=== PATIENT | male | born 1960 | race Caucasian/White ===

== ENCOUNTER 2016-12-08 11:35 | Emergency (ER) | payer OTHER ==
[~2016-12-08] VITALS: Ht 180.3 cm; Wt 101.0 kg
[~2016-12-08 11:35] MED LIST: CIPR500T4 PO; METR500T PO; ULT50 PO
[2016-12-08 11:52] VITALS: Ht 180.3 cm; Wt 101.0 kg
[2016-12-08] MEDS ORDERED: HYDROCODONE/APAP (5/325) TAB PO ONE (12:30)
[2016-12-08] MEDS ORDERED: IBUPROFEN 600 MG TAB PO ONE (12:30)
[2016-12-08] MEDS ORDERED: ONDANSETRON 4 MG TAB PO ONE (12:30)
--- NOTE | 2016-12-08 13:05 | RADRPT ---
PROCEDURE: XR Lumbar Spine. CLINICAL INDICATION: Lumbar spine pain. TECHNIQUE: AP, lateral, and cone-down lateral view of the lumbar spine were obtained. COMPARISON: CT abdomen 10/03/2013 FINDINGS: There is stable 3 mm retrolisthesis of L4 on L5 and trace retrolisthesis of L2 on L3 and L3 on L4. There are anterior osteophytes from L2-S1 with moderate narrowing of the intervertebral disc spaces at L4-5 and mild disc-space narrowing at L2-3, L3-4 and L5-S1. There are moderate discogenic endpla te changes at L4-5. There are mild associated discogenic endplate changes at L2-3, L3-4 and L5-S1. There is stable appearance of chronic anterior wedging of the T12 vertebral body. The remaining deidre tebral body heights are maintained. The marrow density is within normal limits. There is moderate facet spondylosis at L4-5 and L5-S1 with suggestion of neural foraminal narrowing at these levels. The remaining neural foramina appear patent. The paraspinal soft tissues unremarkable. There is no evidence of fracture. IMPRESSION: 1. Moderate to severe degenerative disc disease at L4-5. 2. Mild to moderate degenerative disc disease at L2-3, L3-4 and L5-S1. 3. Moderate facet spondylosis at L4-5 and L5-S1 with suggestion of neural foraminal narrowing at th dixie level. RPTAT: HGAS .Jeromy Alvarado MD, Date Time Electronically viewed and signed by .Jeromy Alvarado MD, on 12/08/2016 13:04 .S/
[2016-12-08] MEDS ORDERED: IBUP-1542 PO (13:32)
[2016-12-08] MEDS ORDERED: HYDR-906 PO (13:32)
[2016-12-08] MEDS ORDERED: ONDA4TAB8 PO (13:37)
[2016-12-08 14:26] VITALS: BP 126/75; PULSE 75; RESP 18; TEMP 98.3
--- NOTE | 2016-12-08 17:28 | ERD ---
ER Documentation Chief Complaint Date/Time DATE: 12/08/16 TIME: 17:26 Chief Complaint Complains of lower backpain since yesterday HPI This is a 56-year-old male presents to the ER with lower back pain that started yesterday. Patient was bending down and he picked up something heavy when he felt severe back pain. Pain has been constant since then. Pain does not radiate anywhere. Patient denies any urinary bowel incontinence. He denies any fevers or chills. He denies any lower extremity numbness or tingling. Patient denies any flank pain. He denies any urinary frequency, dysuria, hematuria. Patient still is complaining of nausea vomiting diarrhea that started yesterday. Vomiting is nonbilious nonbloody. Diarrhea is watery with no blood in it. Patient denies any dizziness or weakness. He denies any abdominal pain at this time. Patient denies chest pain or shortness of breath. ROS 12 point review of systems was done, all negative except per HPI. Medications Home Meds Active Scripts Ondansetron Hcl* (Zofran*) 4 Mg Tablet, 4 MG PO Q6H for NAUSEA AND/OR VOMITING, #30 TAB Prov:SUSY BROWN 12/08/16 Ibuprofen* (Motrin*) 600 Mg Tab, 600 MG PO Q6, #30 TAB Prov:SUSY BROWN 12/08/16 Hydrocodone/Acetaminophen ([place] 5-325 Tablet) 1 Each Tablet, 1 TAB PO Q6H Y for PAIN, #20 TAB Prov:SUSY BROWN C 12/08/16 Tramadol HCl (Tramadol HCl) 50 Mg Tablet, 50 MG PO Q4 Y for PAIN, #20 TAB Prov:ANH ROWE. 07/01/16 Metronidazole* (Flagyl*) 500 Mg Tablet, 500 MG PO TID for 7 Days, TAB Prov:ANH ROWE 07/01/16 Ciprofloxacin Hcl* (Ciprofloxacin Hcl*) 500 Mg Tablet, 500 MG PO BID for 7 Days , TAB Prov:ANH ROWE. 07/01/16 Allergies Allergies: Coded Allergies: No Known Drug Allergy (Verified Allergy, Unknown, 07/01/16) PMhx/Soc History of Surgery: Yes (DIVERTICULITIS) Anesthesia Reaction: No Hx Neurological Disorder: No Hx Respiratory Disorders: No Hx Cardiac Disorders: No Hx Psychiatric Problems: No Hx Miscellaneous Medical Probl: No Hx Alcohol Use: No Hx Substance Use: No Hx Tobacco Use: No Physical Exam Vitals Vital Signs Date Time Temp Pulse Resp B/P Pulse Ox O2 Delivery O2 Flow Rate FiO2 12/08/16 14:26 98.3 75 18 126/75 100 Room Air 12/08/16 11:52 98.3 98 20 135/80 98 Physical Exam GENERAL: The patient is well developed and appropriate for usual state of health , in no apparent distress. NECK: C-spine is soft and supple. There is no cervical lymphadenopathy. CHEST: Clear to auscultation bilaterally. There are no rales, wheezes or rhonchi. HEART: Regular rate and rhythm. No murmurs, clicks, rubs or gallops. ABDOMEN: Soft, nontender and nondistended. Good bowel sounds. No rebound or guarding. No gross peritonitis. No gross organomegaly or masses. No Pugh sign or McBurney point tenderness. No pulsatile abdominal mass. BACK: No midline or flank tenderness. Tender to palpation from L3-L5. Tense paraspinal muscles. Negative leg raise test. No step- offs. EXTREMITIES: Equal pulses bilaterally. There is no peripheral clubbing, cyanosis or edema. No focal swelling or erythema. Full range of motion. Grossly neurovascularly intact. NEURO: Alert and oriented. Cranial nerves II through XII are intact. Motor strength in all 4 extremities with 5/5 strength. Sensation grossly intact. Normal speech and gait. SKIN: There is no apparent rash or petechia. The skin is warm and dry. Results 24 hrs Current Medications Medications (Trade) Dose Ordered Sig/Beena Route PRN Reason Start Time Stop Time Status Last Admin Dose Admin Ondansetron HCl (Zofran Tab) 4 mg ONCE ONCE PO 12/08/16 12:30 12/08/16 12:31 DC 12/08/16 13:01 Acetaminophen/ Hydrocodone Bitart ([place] (5/325)) 1 tab ONCE ONCE PO 12/08/16 12:30 12/08/16 12:31 DC 12/08/16 12:30 Ibuprofen (Motrin) 600 mg ONCE ONCE PO 12/08/16 12:30 12/08/16 12:31 DC 12/08/16 12:30 Procedures/MDM Differential Diagnosis includes but is not limited to back strain, vertebral fracture, epidural abscess, cauda equina, herniated disc, AAA rupture, kidney stones, UTI, pyelonephritis. Is likely back strain. Patient does have some degenerative disc disease however there is no fracture or dislocation. Patient is neurovascularly intact. In regards to patient's nausea vomiting and diarrhea this is likely gastroenteritis. I doubt acute abdomen as patient does not have any abdominal pain. Patient is afebrile and well-appearing. His vital signs are stable. He was given Zofran here in the ER and he was able to tolerate p.o. fluids. He felt much better. She will be sent home with [place], ibuprofen, Zofran. He is to follow-up with his primary care doctor within 1-2 days or return to ER sooner if symptoms worsen. My medical decision making was shared with the patient he understands and agrees with plan. Departure Diagnosis: Primary Impression: Back pain Condition: Stable Patient Instructions: Back Pain (Acute Or Chronic), Gastroenteritis, Viral (6Y- Adult) Referrals: FLAQUITO GUILLEN (PCP) Additional Instructions: Call your primary care doctor TOMORROW for an appointment during the next 1-2 days.See the doctor sooner or return here if your condition worsens before your appointment time. SUSY BROWN Dec 08, 2016 17:28
== END 2016-12-08 14:28 | disposition home or self-care (01) ==
LOC: FTE 11:35
DX: M54.5 Low back pain (principal); R11.2 Nausea with vomiting, unspecified
CPT/HCPCS: 72100; Z7502; Z7610

== ENCOUNTER 2017-05-26 18:17 | Emergency (ER) | payer OTHER ==
[~2017-05-26] VITALS: Wt 95.5 kg
[~2017-05-26 18:17] MED LIST changes: +HYDR-906 PO; +IBUP-1542 PO; +ONDA4TAB8 PO; +TRAM50TA2 PO; -ULT50 PO
[2017-05-26] MEDS ORDERED: HYDR-906 PO (20:55)
[2017-05-26] MEDS ORDERED: NAPR-260 PO (20:56)
[2017-05-26] MEDS ORDERED: CYCL-319 PO (20:56)
[2017-05-26] MEDS ORDERED: HYDROCODONE/APAP (5/325) TAB PO ONE (21:00)
--- NOTE | 2017-05-26 22:03 | ERD ---
ER Documentation Chief Complaint Date/Time DATE: 05/26/17 TIME: 21:54 Chief Complaint LOW BACK PAIN, ONSET 2 DAYS, NO INJURY HPI This patient is a 56-year-old male presenting to the emergency department with complaints of low back pain after lifting a heavy object approximately 4 hours ago. Symptoms are aggravated with lying down. Symptoms are alleviated with Tylenol. Symptoms are currently moderate in severity. The patient denies fevers, chills, nausea, vomiting, diarrhea, or other symptoms currently. He denies loss of bowel or bladder function or decreased sensation in his bilateral lower extremities. ROS All systems reviewed and are negative except as per history of present illness. Medications Home Meds Active Scripts Naproxen* (Naprosyn*) 500 Mg Tablet, 500 MG PO BID Y for PAIN AND/OR INFLAMMATION, #30 TAB Prov:ANH MUSE PA-C 05/26/17 Cyclobenzaprine Hcl* (Cyclobenzaprine Hcl*) 10 Mg Tablet, 10 MG PO TID, #15 TAB Prov:ANH MUSE PA-C 05/26/17 Hydrocodone/Acetaminophen ([place] 5-325 Tablet) 1 Each Tablet, 1 TAB PO Q6H Y for PAIN, #7 TAB Prov:ANH MUSE PA-C 05/26/17 Ondansetron Hcl* (Zofran*) 4 Mg Tablet, 4 MG PO Q6H for NAUSEA AND/OR VOMITING, #30 TAB Prov:SUSY BROWN 12/08/16 Ibuprofen* (Motrin*) 600 Mg Tab, 600 MG PO Q6, #30 TAB Prov:SUSY BROWN 12/08/16 Hydrocodone/Acetaminophen ([place]enedict 5-325 Tablet) 1 Each Tablet, 1 TAB PO Q6H Y for PAIN, #20 TAB Prov:SUSY BROWN 12/08/16 Tramadol HCl (Tramadol HCl) 50 Mg Tablet, 50 MG PO Q4 Y for PAIN, #20 TAB Prov:ANH ROWE 07/01/16 Metronidazole* (Flagyl*) 500 Mg Tablet, 500 MG PO TID for 7 Days, TAB Prov:ANH ROWE 07/01/16 Ciprofloxacin Hcl* (Ciprofloxacin Hcl*) 500 Mg Tablet, 500 MG PO BID for 7 Days , TAB Prov:ANH ROWE 07/01/16 Allergies Allergies: Coded Allergies: No Known Drug Allergy (Verified Allergy, Unknown, 07/01/16) PMhx/Soc History of Surgery: Yes (DIVERTICULITIS) Anesthesia Reaction: No Hx Neurological Disorder: No Hx Respiratory Disorders: No Hx Cardiac Disorders: No Hx Psychiatric Problems: No Hx Miscellaneous Medical Probl: Yes (back pain) Hx Alcohol Use: No Hx Substance Use: No Hx Tobacco Use: No Smoking Status: Never smoker FmHx Noncontributory for chief complaint Physical Exam Vitals Vital Signs Date Time Temp Pulse Resp B/P Pulse Ox O2 Delivery O2 Flow Rate FiO2 05/26/17 18:25 98.3 86 17 152/96 99 Physical Exam Const: Nontoxic, well-appearing male in mild distress secondary to pain. Head: Atraumatic Eyes: Normal Conjunctiva ENT: Normal External Ears, Nose and Mouth. Neck: Full range of motion..~ No meningismus. Resp: Clear to auscultation bilaterally Cardio: Regular rate and rhythm, no murmurs Abd: Soft, non tender, non distended. Normal bowel sounds Skin: No petechiae or rashes Back: No midline or flank tenderness. Positive straight leg raise from seated bilaterally. Patient in acute pain and unable to lay down flat during the examination. Ext: No cyanosis, or edema Neur: Awake and alert Psych: Normal Mood and Affect Results 24 hrs Current Medications Medications (Trade) Dose Ordered Sig/Beena Route PRN Reason Start Time Stop Time Status Last Admin Dose Admin Acetaminophen/ Hydrocodone Bitart (Bened[place] (5/325)) 1 tab ONCE ONCE PO 05/26/17 21:00 05/26/17 21:01 DC 05/26/17 21:03 Procedures/MDM 56-year-old male presents to the emergency department secondary to complaints of low back pain after injury approximately 4 hours ago. The patient was lifting a heavy object. The patient has had no bowel or bladder incontinence. I believe the patient has a low back strain secondary to lifting the heavy object. The patient was treated in the department of Benedict p.o. and he was feeling improved on reevaluation. I do not believe that imaging is indicated at this time because there is no blunt force trauma to the back. The diagnosis is low back pain secondary to lumbar strain. I have low suspicion for cauda equina, epidural abscess, vertebral fracture, or other emergent conditions. The patient is stable for outpatient management with a prescription for Benedict, Flexeril, and naproxen. The patient understands and agrees with the discharge plan and diagnosis. All questions and concerns were addressed. Close follow- up with the primary care physician advised. Strict ER return precautions discussed and the patient demonstrated good understanding. Departure Diagnosis: Primary Impression: Back pain Back pain location: low back pain Chronicity: acute Back pain laterality: bilateral Sciatica presence: without sciatica Qualified Code: M54.5 - Acute bilateral low back pain without sciatica Condition: Fair Patient Instructions: Back Pain (Acute Or Chronic) Referrals: FLAQUITO GUILLEN (PCP) Additional Instructions: Follow up with your PCP within the next 1-3 days for a repeat evaluation and a possible referral to a specialist, if required. Return the the emergency department immediately if symptoms worsen or change. If you have any questions regarding medications, ask your pharmacist or us before you leave. If any adverse reactions, occur while taking your medications, discontinue the treatment and return to the emergency department immediately. If any new or worsening symptoms, uncontrolled fevers, or other unexplained symptoms occur, return to the emergency department immediately. Take your medications as directed, and complete the entire course of treatment. ANH MUSE PA-C May 26, 2017 22:03
== END 2017-05-26 21:15 | disposition home or self-care (01) ==
LOC: FTE 18:17
DX: M54.5 Low back pain (principal)

== ENCOUNTER 2018-04-28 14:50 | Emergency (ER) | END 2018-04-28 18:17 | disposition home or self-care (01) ==

== ENCOUNTER 2018-06-25 05:54 | Emergency (ER) | END 2018-06-25 12:01 | disposition home or self-care (01) ==

== ENCOUNTER 2019-01-17 05:51 | Day surgery (SDC) | payer OTHER ==
[~2019-01-17] VITALS: Ht 177.8 cm; Wt 99.0 kg
[~2019-01-17 05:51] MED LIST changes: -CIPR500T4 PO; +HYDR-3980 PO; -HYDR-906 PO; -IBUP-1542 PO; -METR500T PO; +ONDA4TAB14 PO; -ONDA4TAB8 PO; +RANI150T35 PO; -TRAM50TA2 PO
[2019-01-17] MEDS ORDERED: PROPOFOL 200 MG INJ ONE (07:00)
[2019-01-17] MEDS ORDERED: FERROUS SULFATE PO (07:04)
[2019-01-17] MEDS ORDERED: OYSTER SHELL PO (07:04)
[2019-01-17] MEDS ORDERED: LOSARTAN PO (07:04)
[2019-01-17 07:05] VITALS: Ht 177.8 cm; Wt 99.0 kg
--- NOTE | 2019-01-17 07:32 | PREAC ---
Date/Time of Note Date/Time of Note DATE: 01/17/19 TIME: 07:31 Anesthesia Eval and Record Evaluation Time Pre-Procedure Interview DATE: 01/17/19 TIME: 07:31 Age 58 Sex male NPO: 8 hrs Preoperative diagnosis screening Planned procedure colonoscopy Past Medical History Past Medical History: Includes Cardio: HTN Musculoskeletal: Osteoarthritis Hepatic: Cirrhosis GI: Obesity Surgery & Anesthesia Issues No known issue Meds Anticoagulation: No Beta Prasad within 24 hr: No Reason Beta Prasad not given: Pt. not on B-Prasad Reported Medications [Oyster Shell] No Conflict Check, PO 01/17/19 [Ferrous Sulfate] No Conflict Check, PO 01/17/19 [Losartan] No Conflict Check, PO 01/17/19 Discontinued Scripts Ranitidine Hcl* (Zantac*) 150 Mg Tablet, 150 MG PO BID PRN for EPIGASTRIC PAIN, #30 TAB Prov:ODESSA GIRARD DO 06/25/18 Hydrocodone/Acetaminophen ([place] 10-325 Tablet) 1 Each Tablet, 1 TAB PO Q6H PRN for PAIN, #12 TAB Prov:ODESSA GIRARD DO 06/25/18 Ondansetron (Ondansetron Odt) 4 Mg Tab.rapdis, 4 MG PO Q6H PRN for NAUSEA AND/OR VOMITING, #10 TAB Prov:MARITZA ZAMBRANO MD 04/28/18 Hydrocodone/Acetaminophen ([place] 10-325 Tablet) 1 Each Tablet, 1 TAB PO Q6H PRN for PAIN, #7 TAB Prov:MARITZA ZAMBRANO MD 04/28/18 Meds reviewed: Yes Allergies Coded Allergies: No Known Drug Allergy (Verified Allergy, Unknown, 04/28/18) Allergies Reviewed: Yes Labs/Studies Labs Reviewed: Reviewed by anesthesiologist test: Negative Pre-procedure Exam Airway: Adequate mouth opening, Adequate thyromental dist Mallampati: Mallampati II Teeth: Normal Lung: Normal Heart: Normal ASA Physical Status ASA physical status: 2 Emergency: None Planned Anesthetic General/MAC: Mask Pre-operative Attestations Prior to commencing anesthesia and surgery, the patient was re-evaluated, there was verification of: *The patient's identity *The results of appropriate recent lab work and preoperative vital signs *The above evaluation not changing prior to induction *Anesthetic plan, risk benefits, alternative and complications discussed with patient/family; questions answered; patient/family understands, accepts and wishes to proceed. MIGUEL ASHBY Jan 17, 2019 07:31
[2019-01-17 07:39] VITALS: BP 128/82; PULSE 75; RESP 18
[2019-01-17] MEDS ORDERED: LIDOCAINE 100 MG SYRINGE ONE (07:43)
[2019-01-17] MEDS ORDERED: PROPOFOL 40 ML ONE (07:43)
[2019-01-17 08:40] VITALS: BP 134/81; PULSE 65; RESP 18
--- NOTE | 2019-01-17 14:30 | PAC ---
Date/Time of Note Date/Time of Note DATE: 01/17/19 TIME: 14:30 Post-Anesthesia Notes Post-Anesthesia Note Last documented vital signs Vital Signs Date Temp Pulse Resp B/P (MAP) Pulse Ox O2 O2 Flow FiO2 Time Delivery Rate 01/17/19 98.0 65 18 134/81 96 Room Air 08:40 (98) Activity: WNL Respiratory function: WNL Cardiovascular function: WNL Mental status: Baseline Pain reasonably controlled: Yes Hydration appropriate: Yes Nausea/Vomiting absent: Yes MIGUEL ASHBY Jan 17, 2019 14:30
== END 2019-01-17 10:15 | disposition home or self-care (01) ==
LOC: GIL 05:51
PROVIDERS: ATTEND Internal Medicine Gastroenterology
DX: Z12.11 Encounter for screening for malignant neoplasm of colon (principal); K64.8 Other hemorrhoids; K64.4 Residual hemorrhoidal skin tags; K57.30 Diverticulosis of large intestine without perforation or abscess without bleeding
CPT/HCPCS: 45378; J2001; Z7610

== ENCOUNTER 2019-05-23 08:13 | Emergency (ER) | payer OTHER ==
[~2019-05-23] VITALS: Ht 177.8 cm; Wt 98.9 kg
[~2019-05-23 08:13] MED LIST changes: +FERROUS SULFATE PO; -HYDR-3980 PO; +LOSARTAN PO; -ONDA4TAB14 PO; +OYSTER SHELL PO; -RANI150T35 PO
[2019-05-23 08:15] VITALS: Ht 177.8 cm; Wt 98.9 kg
[2019-05-23] MEDS ORDERED: ONDANSETRON (ODT) 4 MG TAB ODT STA (08:33)
[2019-05-23] MEDS ORDERED: NICARDipine HCL 30 MG CAPSULE PO ONE (09:00)
[2019-05-23] MEDS ORDERED: traMADol 50 MG TAB PO ONE (09:00)
[2019-05-23] MEDS ORDERED: MECLIZINE 12.5 MG TAB PO ONE (09:00)
[2019-05-23] MEDS ORDERED: IBUP-1542 PO (10:31)
[2019-05-23] MEDS ORDERED: ONDA4TAB14 PO (10:31)
[2019-05-23] MEDS ORDERED: MECL12.574 PO (10:31)
--- NOTE | 2019-05-23 10:31 | ERD ---
ER Documentation Chief Complaint Chief Complaint dizziness, headache, abdominal pain and nausea x 2 days HPI Patient is a 58-year-old male who presents with dizziness. The patient has had dizziness that started yesterday morning. He also has upper abdominal pain. He has nausea, vomiting, and diarrhea. He has had no treatment as of yet. ROS All systems reviewed and are negative except as per history of present illness. Medications Home Meds Active Scripts Meclizine Hcl* (Antivert*) 12.5 Mg Tab, 25 MG PO Q6H PRN for DIZZINESS, #20 TAB Prov:MARITZA ZAMBRANO MD 05/23/19 Ondansetron (Ondansetron Odt) 4 Mg Tab.rapdis, 4 MG PO Q6H PRN for NAUSEA AND/OR VOMITING, #10 TAB Prov:MARITZA ZAMBRANO MD 05/23/19 Ibuprofen* (Motrin*) 600 Mg Tab, 600 MG PO Q6H PRN for PAIN AND OR ELEVATED TEMP, #30 TAB Prov:MARITZA ZAMBRANO MD 05/23/19 Reported Medications [Oyster Shell] No Conflict Check, PO 01/17/19 [Ferrous Sulfate] No Conflict Check, PO 01/17/19 [Losartan] No Conflict Check, PO 01/17/19 Allergies Allergies: Coded Allergies: No Known Drug Allergy (Verified Allergy, Unknown, 04/28/18) PMhx/Soc History of Surgery: Yes (COLOSTOMY WITH REVERSAL 10 YRS AGO) Anesthesia Reaction: No Hx Neurological Disorder: No Hx Respiratory Disorders: No Hx Cardiac Disorders: Yes (HTN) Hx Psychiatric Problems: No Hx Miscellaneous Medical Probl: Yes (KOREY) Hx Alcohol Use: Yes Hx Substance Use: No Hx Tobacco Use: No Smoking Status: Never smoker FmHx Family History: No diabetes Physical Exam Vitals Vital Signs Date Temp Pulse Resp B/P (MAP) Pulse Ox O2 O2 Flow FiO2 Time Delivery Rate 05/23/19 98.1 88 16 127/87 98 Room Air 10:39 (100) 05/23/19 90 16 141/94 98 Room Air 09:50 (110) 05/23/19 97.4 79 18 172/93 99 08:15 (119) Physical Exam Const: No acute distress Head: Atraumatic Eyes: Normal Conjunctiva ENT: Normal External Ears, Nose and Mouth. Neck: Full range of motion. No meningismus. Resp: Clear to auscultation bilaterally Cardio: Regular rate and rhythm, no murmurs Abd: Soft, epigastric tenderness to palpation without rebound or guarding Skin: No petechiae or rashes Back: No midline or flank tenderness Ext: No cyanosis, or edema Neur: Awake and alert Psych: Normal Mood and Affect Result Diagram: 05/23/19 0838 05/23/19 0838 Results 24 hrs Laboratory Tests Test 05/23/19 08:38 White Blood Count 5.0 10^3/ul Red Blood Count 5.03 10^6/ul Hemoglobin 14.8 g/dl Hematocrit 43.8 % Mean Corpuscular Volume 87.1 fl Mean Corpuscular Hemoglobin 29.4 pg Mean Corpuscular Hemoglobin Concent 33.8 g/dl Red Cell Distribution Width 13.7 % Platelet Count 155 10^3/UL Mean Platelet Volume 10.5 fl Immature Granulocytes % 0.200 % Neutrophils % 67.9 % Lymphocytes % 17.2 % Monocytes % 13.9 % Eosinophils % 0.0 % Basophils % 0.8 % Nucleated Red Blood Cells % 0.0 /100WBC Immature Granulocytes # 0.010 10^3/ul Neutrophils # 3.4 10^3/ul Lymphocytes # 0.9 10^3/ul Monocytes # 0.7 10^3/ul Eosinophils # 0.0 10^3/ul Basophils # 0.0 10^3/ul Nucleated Red Blood Cells # 0.0 10^3/ul Prothrombin Time 13.7 Sec Prothrombin Time Ratio 1.1 INR International Normalized Ratio 1.04 Activated Partial Thromboplast Time 34.3 Sec Sodium Level 136 mmol/L Potassium Level 4.0 mmol/L Chloride Level 92 mmol/L Carbon Dioxide Level 31 mmol/L Anion Gap 13 Blood Urea Nitrogen 7 mg/dl Creatinine 0.76 mg/dl Est Glomerular Filtrat Rate mL/min > 60 mL/min Glucose Level 128 mg/dl Calcium Level 9.5 mg/dl Total Bilirubin 0.8 mg/dl Direct Bilirubin 0.00 mg/dl Indirect Bilirubin 0.8 mg/dl Aspartate Amino Transf (AST/SGOT) 49 IU/L Alanine Aminotransferase (ALT/SGPT) 32 IU/L Alkaline Phosphatase 95 IU/L Troponin I < 0.012 ng/ml Total Protein 8.5 g/dl Albumin 4.5 g/dl Lipase 182 U/L Current Medications Medications Dose Sig/Beena Start Time Status Last (Trade) Ordered Route PRN Stop Time Admin Dose Reason Admin Tramadol 50 mg ONCE ONCE 05/23/19 DC 05/23/19 HCl PO 09:00 08:43 (Ultram) 05/23/19 09:01 Ondansetron 4 mg ONCE STAT 05/23/19 DC 05/23/19 HCl (Zofran ODT 08:33 08:42 Odt) 05/23/19 08:34 Meclizine 25 mg ONCE ONCE 05/23/19 DC 05/23/19 HCl PO 09:00 08:43 (Antivert) 05/23/19 09:01 Nicardipine 30 mg ONCE ONCE 05/23/19 DC 05/23/19 HCl PO 09:00 08:42 (Cardene) 05/23/19 09:01 Procedures/MDM EKG read by me: Rate/Rhythm: Regular rate and rhythm at a rate of 72 Intervals: Normal Impression: No evidence of ischemia or arrhythmia CT brain shows no acute hemorrhage per radiology. Patient is a 58-year-old male presents with multiple complaints. He has headache, dizziness, abdominal pain, nausea, vomiting, and diarrhea. The patient had work-up with laboratory studies as well as CT scan of the brain. Work-up was basically negative. I doubt intracranial hemorrhage or brain mass. I doubt stroke. I doubt appendicitis, cholecystitis, pancreatitis, or bowel obstruction. The patient will be discharged but will need to follow-up closely with his primary doctor within 24 to 48 hours for reevaluation. He can return sooner for any worsening symptoms. The patient will be given a prescription for ibuprofen, Zofran, and meclizine. Departure Diagnosis: Primary Impression: Dizziness Additional Impression: Abdominal pain Abdominal location: epigastric Qualified Codes: R10.13 - Epigastric pain Condition: Fair Patient Instructions: Abdominal Pain, Dizziness, Unk Cause Additional Instructions: Call your primary care doctor TOMORROW for an appointment during the next 1-2 days.See the doctor sooner or return here if your condition worsens before your appointment time. MARITZA ZAMBRANO MD May 23, 2019 10:31
[2019-05-23 10:39] VITALS: BP 127/87; PULSE 88; RESP 16
== END 2019-05-23 11:13 | disposition home or self-care (01) ==
LOC: E/R 08:13
DX: R42 Dizziness and giddiness (principal); I10 Essential (primary) hypertension; R10.13 Epigastric pain; R11.2 Nausea with vomiting, unspecified
CPT/HCPCS: 36415; 70450; 80048; 80076; 83690; 84484; 85025; 85610; 85730; 93005; Z7502; Z7610